=== PATIENT | female | born 1950 | race Caucasian/White ===

== ENCOUNTER 2017-01-23 06:35 | Emergency (ER) | payer MEDICARE, BC ==
[~2017-01-23] VITALS: Ht 162.6 cm; Wt 88.0 kg
--- NOTE | ~2017-01-23 | CR72 ---
[facility] A Service of [facility] & [facility] RADIOLOGY TEXT RESULTS PATIENT: KALPESH MADRID LOCATION: [facility] : 46 UNIT #: [id number] AGE: [address]: J-oAnn Arevalo APRN SEX: F ORDER DR: [id number] [facility] [address] [place], [place] [address] [id number] MR#: [id number] Acc #: [id number] NAME: KALPESH MADRID : [id number] SEX: F STUDY DATE/TIME: 01/23/2017 8:13 UNIT: [facility] ROOM: STUDY DESCRIPTION: CR Chest Single View Portable Attending Physician: Jo-Ann Arevalo A.P.R.N. Ordering Physician: Ed Doctor [id number] [facility] Primary Care Physician: Mitzi Aponte M.D. MEDICAL IMAGING REPORT This report is preliminary unless electronic signature is present EXAM Portable chest one-view, 01/23/2017 COMPARISON None HISTORY 1-day history of cough, congestion and shortness of air. FINDINGS There is mild pulmonary interstitial prominence with a basilar predominance and there is old granulomatous disease. Heart size is within normal limits and there is no consolidation or effusion or pneumothorax, and no discrete nodule is seen. Findings may simply represent some chronic interstitial lung changes though a component of interstitial infiltrate or edema cannot be excluded. Dictated by... Louis Jeter M.D. THIS IS AN ELECTRONICALLY VERIFIED REPORT Louis Jeter M.D. at 01/27/2017 5:21 PM DEBI/rosa m TD: 01/23/2017 10:14 JOB #: [id number] MEDICAL IMAGING REPORT Page 1 of 1 COPY
--- NOTE | ~2017-01-23 | EKG ---
PATIENT: KALPESH MADRID UNIT #: [id number] Ventricular Rate: 82 BPM Atrial Rate: 82 BPM P-R Interval: 154 ms QRS Duration: 80 ms Q-T Interval: 368 ms QTC Calculation(Bezet): 429 ms P [place]: 27 degrees Calculated R [place]: 72 degrees Calculated T [place]: 35 degrees Diagnosis Line: Normal sinus rhythm Diagnosis Line: Normal ECG Diagnosis Line: Diagnosis Line: Confirmed by KURT SANDOVAL MD ([id number]) on 01/24/2017 Diagnosis Line: 8:31:43 AM INTERPRETING MD: JAIME MOORE
[~2017-01-23 06:35] MED LIST: ACETAMINOPHEN PO; ASPIRIN81 M2 PO; CALCIUM + D SO1 EACH PO; FISH OIL 1,0001 CAP PO; IBUPROFEN; IBUPROFEN800 MG PO; LEVOTHYROXINE50 MCG PO; LOSARTAN-HCTZ1 EAC2 PO; MULTI VITAMIN1 EACH PO; OMEPRAZOLE20 M2 PO; PAROXETINE HCL20 MG PO; PREMARIN VAG CR45 GM MC; PRESERVISION A1 EAC1 PO; PROMETHAZINE D118 ML PO; REFRESH EYE DRO50 E1 OP; TRAVATAN Z5 ML OP; [UNRECOGNIZED DRUG - REMARK]
[2017-01-23 08:52] LABS: BASOPHIL# 0.1 X10e3 (0-0.3); BASOPHIL% 0.9 % (0-2.5); EOSINOPHIL# 0.2 X10e3 (0-0.7); EOSINOPHIL% 3.4 % (0.0-7.0); HEMATOCRIT 38.6 % (35.0-45.0); HEMOGLOBIN 13.2 gm/dL (12.0-16.0); LYMPHOCYTE# 0.3 X10e3 (1.0-3.5); LYMPHOCYTE% 4.7 % (17.0-45.0); MEAN CELL VOLUME 86.5 FL (83-96); MEAN CORPUSCULAR HEMOGLOBIN 29.5 PG (28-34); MEAN CORPUSCULAR HGB CONC 34.1 g/dL (30-36); MEAN PLATELET VOLUME 8.6 FL (6.5-11.5); MONOCYTE# 0.5 X10e3 (0-1.0); MONOCYTE% 8.5 % (3.0-12.0); NEUTROPHIL# 5.1 X10e3 (1.5-7.1); NEUTROPHIL% 82.5 % (40-75); PLATELET COUNT 144 X10e3 (140-420); RED BLOOD COUNT 4.47 X10e (3.90-5.30); RED CELL DISTRIBUTION WIDTH 12.7 % (11.0-15.5); WHITE BLOOD COUNT 6.2 X10e3 (4.0-10.5)
[2017-01-23 08:55] LABS: DIFF IND NO
[2017-01-23 09:01] LABS: POC - CKMB <1.0 ng/mL (0.0-7.9); POC - TROPONIN <0.05 ng/mL (<=0.05)
[2017-01-23 09:34] LABS: ALBUMIN SERUM 3.9 g/dL (3.5-5.0); BILIRUBIN, DIRECT 0.1 mg/dL (0.0-0.2); BILIRUBIN,INDIRECT 0.6 mg/dL (0.0-0.9); BILIRUBIN,TOTAL 0.7 mg/dL (0.2-2.0); BUN/CREATININE RATIO 22.85; CALCIUM SERUM 9.1 mg/dL (8.4-10.2); CREATININE SERUM 0.7 mg/dL (0.6-1.4); POTASSIUM 3.7 mmol/L (3.5-5.1)
== END 2017-01-23 11:34 | disposition home or self-care (01) ==
LOC: CED 06:35
PROVIDERS: Nurse Practitioner
DX: J18.9 Pneumonia, unspecified organism (principal); J98.01 Acute bronchospasm; I10 Essential (primary) hypertension; Z90.49 Acquired absence of other specified parts of digestive tract
CPT/HCPCS: 36415; 71010; 80048; 80076; 82553; 83880; 84484; 85025; 87651; 93005; 94640; 99284